=== PATIENT | male | born 1985 ===

== ENCOUNTER 2022-06-11 20:24 | Emergency (ER) | payer SELFPAY ==
[~2022-06-11] VITALS: Ht 170.2 cm; Wt 65.8 kg
[2022-06-11] MEDS ORDERED: THIAMINE HCL 100 MG TABLET PO ONE (20:45)
[2022-06-11 20:57] LABS: HEMATOCRIT 36.2 % (36.7-47.1); MEAN CORPUSCULAR HEMOGLOBIN 33.3 uug (23.8-33.4); MEAN CORPUSCULAR VOLUME 95.4 fL (73.0-96.2); PLATELET COUNT (AUTO) 253 K/uL (152-348)
[2022-06-11 21:06] LABS: CARBON DIOXIDE 30 mmol/L (21-32); CHLORIDE 107 mmol/L (98-107); CREATININE 0.6 mg/dL (0.6-1.3); GLUCOSE 96 mg/dL (74-106); POTASSIUM 3.5 mmol/L (3.5-5.1); UREA NITROGEN, BLOOD 8 mg/dL (7-18)
[2022-06-11] MEDS ORDERED: THIAMINE HCL 100 MG TABLET ONE (21:08)
[2022-06-11 21:13] LABS: ALANINE AMINOTRANSFERASE 21 U/L (16-63); ALKALINE PHOSPHATASE 113 U/L (50-136); ASPARTATE AMINOTRANSFERASE 20 U/L (15-37); BILIRUBIN,DIRECT 0.1 mg/dL (0.0-0.2); BILIRUBIN,TOTAL 0.2 mg/dL (0.2-1.0); TOTAL PROTEIN, SERUM 7.7 g/dL (6.4-8.2)
--- NOTE | 2022-06-11 21:26 | NUR ---
PATIENT SLEEPING ON GURNY WITH NO DISTRESS NOTED.
[2022-06-11] MEDS ORDERED: IV NS 1000 ML 1,000 ML IV ONE (22:45)
[2022-06-11] MEDS ORDERED: MAGNESIUM SULFATE/D5W 300 ML ONE (23:14)
[2022-06-11] MEDS: MAGNESIUM SULFATE/D5W 100 ML IV SCH ×2 (23:20→23:55)
[2022-06-12] MEDS: MAGNESIUM SULFATE/D5W 100 ML IV SCH (01:45)
--- NOTE | 2022-06-12 05:40 | NUR ---
IV removed. Catheter intact and site benign. Pressure and 4x4 gauze applied to site. No bleeding noted.
[2022-06-12 05:53] VITALS: BP 120/77
== END 2022-06-12 05:54 | disposition home or self-care (01) ==
LOC: ER 20:26
DX: F10.229 Alcohol dependence with intoxication, unspecified (principal); S02.2XXA Fracture of nasal bones, initial encounter for closed fracture; S06.9XAA Unspecified intracranial injury with loss of consciousness status unknown, initial encounter; W18.30XA Fall on same level, unspecified, initial encounter; Z91.81 History of falling; Y92.410 Unspecified street and highway as the place of occurrence of the external cause
CPT/HCPCS: 99285; 70450; 96365; 80076; 80048; 83735; 85025; 36415; 70486; 96366; J3475; J7040; A4663